=== PATIENT | male | born 1970 | race Caucasian/White ===

== ENCOUNTER 2017-06-15 11:52 | Observation (INO) ==
[2017-06-15] MEDS ORDERED: Aspirin 81 MG TAB.CHEW PO ONE (11:58)
--- NOTE | 2017-06-15 11:58 | Emergency Department Note ---
Disposition Clinical Impression: Chest pain Qualifiers: Chest pain type: precordial pain Qualified Code(s): R07.2 - Precordial pain Hypertension Qualifiers: Hypertension type: essential hypertension Qualified Code(s): I10 - Essential ( primary) hypertension Disposition: Admitted As Inpatient Condition: Good Referrals: Shimon Johnson DO [Primary Care Provider] - Forms: ED Satisfaction Letter Chest Pain HPI - General Chief Complaint: ED Chest Pain Stated Complaint: chest pain Time Seen by Provider: 06/15/17 11:53 Source: patient Mode of arrival: private vehicle Limitations: no limitations Vital Signs Reviewed: Yes Nursing Notes Reviewed: Yes - History of Present Illness HPI Narrative: The patient relates that he started with a chest pain about 8 AM. States he has had 3 pains over the morning lasting about 5 minutes each which were present earlier achiness mid sternum associated with shortness of breath and diaphoresis. He indicates nothing has made him better or worse while they have been present. He has not been able to identify anything that brought them on. He has not had associated nausea, palpitations or radiation of the discomfort to jaw, back or arms. He states he has been feeling well and was area and he denies cough, fevers, chills or any lower extremity complaints. He has not found any postural or positional component to this pain. Denies any other strain, injury or change in activity. States he drinks caffeine and had 3-4 cups of coffee this morning but that is not unusual. Denies any other change in medications or stimulants. He denies any pain or trouble like this before. He states he is currently completely pain-free and his last episode was about 20 minutes prior to arrival. Patient does smoke about 2 packs per day, is hypertensive and has history of elevated cholesterol. Denies history of diabetes, preceding heart disease, DVT or PE. He indicates he has some grandparents who have had heart disease. Pt complaint: chest pain Onset (ago): hour(s) Duration: intermittent Onset: during rest Pain Location: substernal Severity: moderate Quality: aching, other (Burning) Pain Radiation: none Improves with: nothing Worsens with: nothing Associated symptoms: Reports: diaphoresis, dyspnea. Denies: nausea, vomiting, syncope, palpitations, fever, cough, leg swelling Treatments prior to arrival chest pain: none - Related Data Home Medications Medication Instructions Recorded Confirmed Atorvastatin [Lipitor] 20 mg PO HS 09/20/16 06/15/17 Propranolol HCl [Innopran Xl] 80 mg PO DAILY 09/20/16 06/15/17 Allergies Allergy/AdvReac Type Severity Reaction Status Date / Time No Known Allergies Allergy Verified 09/20/16 08:42 All systems ED: reviewed and negative except as stated. Chest Pain PMH - Past Medical History Medical history: Reports: hyperlipidemia, hypertension. Denies: COPD, coronary artery disease, DVT, diabetes, myocardial infarction, pulmonary embolus, thyroid disease Surgical history: Reports: appendectomy Psychiatric history: Reports: no psych history - Social History Smoking Status: Current every day smoker (2 packs per day) Alcohol use: Reports: none Drug use: Reports: none Physical Exam - General Limitations: no limitations General appearance: alert, in no apparent distress - Head Head exam: atraumatic, normocephalic, normal inspection - Eye Eye exam: Present: normal appearance, PERRL, EOMI. Absent: conjunctival injection - ENT ENT exam: normal exam, normal oropharynx, mucous membranes moist - Neck Neck exam: Present: normal inspection, full ROM, trachea midline - Chest Chest inspection: Present: normal inspection, symmetric chest wall rise. Absent : tenderness - Respiratory Respiratory exam: Present: normal lung sounds bilaterally. Absent: respiratory distress, wheezes, prolonged expiratory phase - Cardiovascular Cardiovascular exam: Present: regular rate, normal rhythm, normal heart sounds. Absent: tachycardia - Abdominal Exam Abdominal exam: Present: soft, Non-Tender, normal bowel sounds. Absent: tenderness, distention, guarding, rebound, rigidity - Extremities Exam Extremities exam: Present: normal inspection, full ROM, normal capillary refill. Absent: tenderness, pedal edema, calf tenderness - Expanded Lower Extremity Exam Neurovascular/Tendon exam: Present: normal capillary refill. Absent: motor deficit, sensory deficit, tendon deficit Gait: observed and normal - Back Exam Back exam: Present: normal inspection, full ROM. Absent: tenderness - Neurological Exam Neurological exam: Present: alert, oriented X3, normal gait - Psychiatric Psychiatric exam: Present: normal affect, normal mood - Skin Skin exam: Present: warm, dry, intact, normal color. Absent: diaphoresis, pallor Course Course Narrative: 1235: All testing has been discussed with the patient and his . They understand that an initial negative workup does not rule out possible worrisome underlying cause or heart disease. I advised that I would like to discuss care with Dr. Dunlap to discuss the possible need for further observation and testing. The patient is agreeable with inpatient observation and further testing. 1330: Dr. Dunlap would like a repeat troponin prior to his going to the floor. He is agreeable with inpatient observation at this facility at the troponin is not significantly rising. This has been discussed with the patient and his . Lab has been called for a redraw. Vital Signs Temperature 96.5 F L 06/15/17 11:56 Pulse Rate 83 06/15/17 11:56 Respiratory Rate 20 06/15/17 11:56 Blood Pressure 152/98 06/15/17 11:56 O2 Sat by Pulse Oximetry 94 06/15/17 11:56 Temperature 96.5 F L 06/15/17 11:56 Pulse Rate 76 06/15/17 14:07 Respiratory Rate 18 06/15/17 14:07 Blood Pressure 153/103 06/15/17 14:07 O2 Sat by Pulse Oximetry 97 06/15/17 14:07 Oxygen Delivery Oxygen Delivery Room Air Chest Pain - Differential Diagnosis Likely: atypical chest pain, costalchondritis, chest pain - Medical Records Medical records reviewed: Yes I reviewed the patient's medical records. The patient did have a stress test in 2000. The results of that test are not available in the electronic medical record. - Lab Data Lab results reviewed: Yes I reviewed the patient's lab results. Result diagrams: 06/15/17 12:09 06/15/17 12:09 Lab Results 06/15/17 06/15/17 06/15/17 Range/Units 12:09 12:09 12:09 WBC 9.5 (4.3-11.1) K/mcL RBC 5.59 H (4.19-5.50) M/mcL Hgb 16.9 (12.9-16.9) g/dL Hct 49.5 (37.5-50.1) % MCV 88.6 (83.0-100.0) fL MCH 30.2 (28.0-33.3) pg MCHC 34.1 (31.6-35.5) g/dL RDW 13.0 (11.5-14.5) % Plt Count 273 (140-400) K/mcL MPV 9.4 (9.4-12.4) fL Immature Gran % 0.4 (0-4) % Seg Neutrophils % 62.0 % Lymphocytes % 26.4 % Monocytes % 8.1 % Eosinophils % 2.1 % Basophils % 1.0 % Neutrophils # 5.9 (1.6-8.9) K/mcL Lymphocytes # 2.5 (0.6-4.6) K/mcL Monocytes # 0.8 (0.0-1.3) K/mcL Eosinophils # 0.2 (0.0-0.6) K/mcL Basophils # 0.1 (0.0-0.2) K/mcL PT 11.5 (9.4-12.1) Seconds INR 1.1 APTT 33.5 (26.0-36.0) Seconds D-Dimer 306 (0-500) ng/mLFEU Sodium 140 (136-145) mEq/L Potassium 4.4 (3.5-4.5) mEq/L Chloride 106 (98-109) mEq/L Carbon Dioxide 25 (19-29) mEq/L BUN 13 (8-26) mg/dL Creatinine 0.80 (0.72-1.25) mg/dL Est GFR ( Amer) > 60 (> 60) Est GFR (Non-Af Amer) > 60 (> 60) BUN/Creatinine Ratio 16 (6-26) Glucose 103 H (70-99) mg/dL Calculated Osmolality 290 (280-300) Calcium 8.9 (8.6-10.8) mg/dL Troponin I (0-0.03) ng/mL 06/15/17 06/15/17 Range/Units 12:09 13:45 WBC (4.3-11.1) K/mcL RBC (4.19-5.50) M/mcL Hgb (12.9-16.9) g/dL Hct (37.5-50.1) % MCV (83.0-100.0) fL MCH (28.0-33.3) pg MCHC (31.6-35.5) g/dL RDW (11.5-14.5) % Plt Count (140-400) K/mcL MPV (9.4-12.4) fL Immature Gran % (0-4) % Seg Neutrophils % % Lymphocytes % % Monocytes % % Eosinophils % % Basophils % % Neutrophils # (1.6-8.9) K/mcL Lymphocytes # (0.6-4.6) K/mcL Monocytes # (0.0-1.3) K/mcL Eosinophils # (0.0-0.6) K/mcL Basophils # (0.0-0.2) K/mcL PT (9.4-12.1) Seconds INR APTT (26.0-36.0) Seconds D-Dimer (0-500) ng/mLFEU Sodium (136-145) mEq/L Potassium (3.5-4.5) mEq/L Chloride (98-109) mEq/L Carbon Dioxide (19-29) mEq/L BUN (8-26) mg/dL Creatinine (0.72-1.25) mg/dL Est GFR ( Amer) (> 60) Est GFR (Non-Af Amer) (> 60) BUN/Creatinine Ratio (6-26) Glucose (70-99) mg/dL Calculated Osmolality (280-300) Calcium (8.6-10.8) mg/dL Troponin I 0.01 0.01 (0-0.03) ng/mL - Radiology Data Radiology results reviewed: Yes I reviewed the patient's radiology results. Single view chest x-ray is performed. This does not demonstrate evidence for infiltrate, effusion, pneumothorax, foreign body or heart failure. The cardiac silhouette is normal. I do not see abnormality to the osseous structures of the chest. This is on my interpretation.t Impressions Chest X-Ray 06/15/17 11:58 IMPRESSION: No acute process. D/ / Jayson Castillo MD / Jayson Castillo MD Interpreting Provider: Jayson Castillo MD - EKG Data EKG attestation: Yes I reviewed and interpreted this EKG. EKG shows normal: sinus rhythm, axis, intervals, QRS complexes, ST-T waves Rate: normal (76) Interpretation: no acute changes, normal EKG Heart Score - Score History: Moderately Suspicious EKG: Normal Age: 45-65 Risk Factors: Equal/Greater than 3 risk factor or history of atherosclerotic disease Troponin: Less than normal limit HEART Score Total: 4
[2017-06-15 12:15] LABS: Basophils # 0.1 K/mcL (0.0-0.2); Eosinophils # 0.2 K/mcL (0.0-0.6); Eosinophils % 2.1 %; Hematocrit 49.5 % (37.5-50.1); Hemoglobin 16.9 g/dL (12.9-16.9); Immature Granulocytes % 0.4 % (0-4); Lymphocytes # 2.5 K/mcL (0.6-4.6); Lymphocytes % 26.4 %; Mean Corpuscular HGB Conc 34.1 g/dL (31.6-35.5); Mean Corpuscular Hemoglobin 30.2 pg (28.0-33.3); Mean Corpuscular Volume 88.6 fL (83.0-100.0); Mean Platelet Volume 9.4 fL (9.4-12.4); Monocytes # 0.8 K/mcL (0.0-1.3); Monocytes % 8.1 %; Neutrophils # 5.9 K/mcL (1.6-8.9); Platelet Count 273 K/mcL (140-400); Red Blood Count 5.59 M/mcL (4.19-5.50)
[2017-06-15 12:20] LABS: INR 1.1; Prothrombin Time 11.5 Seconds (9.4-12.1)
[2017-06-15 12:23] LABS: Activated Partial Thrombo Time 33.5 Seconds (26.0-36.0)
[2017-06-15 12:29] LABS: BUN/Creatinine Ratio 16 (6-26); Blood Urea Nitrogen 13 mg/dL (8-26); Calcium 8.9 mg/dL (8.6-10.8); Carbon Dioxide 25 mEq/L (19-29); Chloride 106 mEq/L (98-109); Glucose 103 mg/dL (70-99); Osmolality,Calculated 290 (280-300); Potassium 4.4 mEq/L (3.5-4.5); Sodium 140 mEq/L (136-145); eGFR For African Americans > 60 (> 60); eGFR For Non-African Americans > 60 (> 60)
[2017-06-15] MEDS ORDERED: Acetaminophen 325 MG TABLET PO PRN (14:44)
[2017-06-15] MEDS ORDERED: Ibuprofen 400 MG TABLET PO PRN (14:44)
[2017-06-15] MEDS ORDERED: Nitroglycerin 0.4 MG TAB.SUBL SL PRN (14:44)
[2017-06-15] MEDS ORDERED: MOM Conc 10 ML UD.LIQ PO PRN (14:44)
[2017-06-15] MEDS ORDERED: Ondansetron 4 MG/2 ML VIAL IVP PRN (14:44)
[2017-06-15] MEDS ORDERED: Naloxone 0.4 MG/ML INJ IVP PRN (14:44)
[2017-06-15 14:54] VITALS: BP 156/93
[2017-06-16] MEDS ORDERED: Aspirin 325 MG TABLET PO SCH (09:00)
[2017-06-16] MEDS ORDERED: Propranolol LA (24 HR) 80 MG CAP.SA.24H PO SCH (09:00)
--- NOTE | 2017-06-17 17:27 | Electrocardiograph Report ---
[address] [address] Test Date: 2017-06-15 Pat Name: Gonzalez Yoder Department: [id number] Room: [facility] Gender: M Md Pediatric Allergist: [id number] : 1970 Requested By: Madhav Moon Order Number: [id number] Reading MD: Memo Veliz Measurements Intervals [place] Rate: 76 P: 45 MO: 140 QRS: -18 QRSD: 96 T: -3 QT: 362 QTc: 392 Interpretive Statements SINUS RHYTHM Electronically Signed On 06-17-2017 17:25:41 EST by Memo Veliz
== END 2017-06-15 15:40 | disposition left against medical advice (07) ==
LOC: INPPIK 11:52 → EMEROOPIK 11:52 → INPPIK 14:50
PROVIDERS: ADMIT Internal Medicine; ATTEND Internal Medicine